=== PATIENT | female | born 1970 | race Caucasian/White ===

== ENCOUNTER 2017-02-22 03:29 | Emergency (ER) | payer OTHER ==
[~2017-02-22] VITALS: Ht 152.4 cm; Wt 60.5 kg
[2017-02-22 05:35] VITALS: BP 127/84
== END 2017-02-22 05:38 | disposition home or self-care (01) ==
LOC: EMS 03:32
DX: H00.11 Chalazion right upper eyelid (principal); H00.15 Chalazion left lower eyelid
CPT/HCPCS: 99283